=== PATIENT | female | born 1990 | race African-American/Black ===

== ENCOUNTER 2018-04-08 13:07 | Emergency (ER) | payer BC ==
[~2018-04-08] VITALS: Ht 160 cm; Wt 81.6 kg
[2018-04-08 13:20] VITALS: BP 126/66
--- NOTE | 2018-04-08 13:20 | NUR ---
ED Nurse Note: PT WALKED IN TO ER TODAY FROM HOME. AOX4. PT C/O BODYACHES, SORE THROAT, AND PRODUCTIVE COUGH X 2 DAYS AGO. PT DENIES FEVER. LUNG SOUNDS CLEAR IN ALL LOBES. NO SIGNS OF RESPIRATORY DISTRESS OR RETRACTIONS NOTED. ON ASSESSMENT, RR18 @ 98% O2 SAT ON RA.
--- NOTE | 2018-04-08 14:18 | Emergency Room Report ---
History of Present Illness General Chief Complaint: Flu Like Symptoms Source: Patient Present Illness HPI 28-year-old female with no significant past medical history here complaining of 2 days of fever, chills, 10 out of 10 sore throat and cough and congestion in her chest. She reported lots of yellow and green phlegm coming out when she coughs and minimal wheezing. Denies body aches, denies earache, complains of minor rhinorrhea. She has been taking [id number] medication with minimal leave. denies SOB, chest pain, appendicitis, nausea vomiting, abdominal pain. denies recent travel. Allergies: Coded Allergies: No Known Allergies (Unverified , 04/08/18) Patient History Past Medical History: see triage record Past Surgical History: unable to obtain Pertinent Family History: none Last Menstrual Period: IUD Now: No Reviewed Nursing Documentation: PMH: Agreed; PSxH: Agreed Nursing Documentation-PMH Past Medical History: No Stated History Review of Systems All Other Systems: negative except mentioned in HPI Physical Exam Vital Signs Date Time Temp Pulse Resp B/P (MAP) Pulse Ox O2 Delivery O2 Flow Rate FiO2 04/08/18 13:15 99.5 85 20 129/64 97 Room Air Sp02 EP Interpretation: reviewed, normal General Appearance: normal inspection, well appearing, no apparent distress Head: normocephalic, atraumatic Eyes: bilateral eye normal inspection, bilateral eye PERRL ENT: no angioedema, normal voice, TMs + canals normal, uvula midline, nasal congestion, tonsillar swelling, tonsillar exudate Neck: normal inspection, full range of motion, supple Respiratory: normal inspection, lungs clear, no rhonchi, no retraction, no accessory muscle use, no wheezing Cardiovascular #1: normal inspection, regular rate, rhythm, no edema, no murmur Gastrointestinal: normal inspection, normal bowel sounds, non tender, soft Rectal: deferred Genitourinary: deferred Musculoskeletal: normal inspection, back normal Neurologic: normal inspection, alert, oriented x3 Psychiatric: normal inspection, judgement/insight normal, memory normal Skin: normal inspection, normal color, no rash, warm/dry Lymphatic: axilla node tender (R), adenopathy - anterior cervical lymphadenopathy Medical Decision Making PA Attestation All diagnosis and treatment plans were reviewed and discussed with my supervising physician Dr. Carrasco Diagnostic Impression: Primary Impression: Sinusitis ER Course 28-year-old female with no significant past medical history here complaining of 2 days of fever, chills, 10 out of 10 sore throat and cough and congestion in her chest. She reported lots of yellow and green phlegm coming out when she coughs and minimal wheezing. Denies body aches, denies earache, complains of minor rhinorrhea. She has been taking pbfp-ple-fmokged medication with minimal leave. denies SOB, chest pain, appendicitis, nausea vomiting, abdominal pain. denies recent travel. Ddx considered but are not limited to sinusitis, bronchitis, pneumonia, strep pharyngitis, influenza Vital signs: are WNL, pt. is afebrile H&PE are most consistent with sinusitis secondary to strep pharyngitis ORDERS: Ventolin HFA, Phenergan, ibuprofen, Augmentinl ED INTERVENTIONS: None required at this time. DISCHARGE: At this time pt. is stable for d/c to home. Will provide printed patient care instructions, and any necessary prescriptions. Care plan and follow up instructions have been discussed with the patient prior to discharge. Last Vital Signs Date Time Temp Pulse Resp B/P (MAP) Pulse Ox O2 Delivery O2 Flow Rate FiO2 04/08/18 13:15 99.5 85 20 129/64 97 Room Air Disposition: HOME, SELF-CARE Condition: Stable Scripts Ibuprofen* (MOTRIN*) 600 Mg Tablet 600 MG ORAL Q8H PRN for For Pain, #30 TAB 0 Refills Prov: AngélicamogStew ruiz PA 04/08/18 Albuterol Sulfate (VENTOLIN HFA) 18 Gm Hfa.aer.ad 2 PUFFS INH EVERY 6 HOURS, #18 GM 0 Refills Prov: AngélicamogStew ruiz PA 04/08/18 Promethazine Hcl (PROMETHAZINE HCL*) 6.25 Mg/5 Ml Syrup 5 ML ORAL Q6H, #120 ML 0 Refills Prov: Stew Lopez 04/08/18 Amoxicillin/Potassium Clav 875-125* (AUGMENTIN 875-125 TABLET*) 1 Each Tablet 1 TAB ORAL TWICE A DAY for 10 Days, #20 TAB Prov: Stew Lopez 04/08/18 Patient Instructions: Sinusitis, Adult, [id number], Strep Throat, Easy-to- Read Stew Lopez Apr 08, 2018 14:18
[2018-04-08] MEDS ORDERED: IBUPROFEN600 MG ORAL (14:20)
[2018-04-08] MEDS ORDERED: VENTOLIN HFA18 GM INH (14:20)
[2018-04-08] MEDS ORDERED: PROMETHAZI6.25 MG/1 ORAL (14:20)
[2018-04-08] MEDS ORDERED: AUGMENTIN 875-1 EAC1 ORAL (14:20)
[2018-04-08 14:32] VITALS: BP 124/70
--- NOTE | 2018-04-08 14:33 | NUR ---
ED Nurse Note: PT SITTING PEACEFULLY IN BED IN NAD. AOX4. PRESCRIPTIONS AND DISCHARGE PAPERWORK EXPLAINED TO PT. PT VERBALIZES UNADERSTANDING AND ALL QUESTIONS ANSWERED. PRESCRIPTIONS AND DISCHARGE PAPERWORK GIVEN TO PT AND ID WRISTBAND REMOVED. PT WALKED OUT OF ER WITH STEADY GAIT AND ALL BELONGINGS.
== END 2018-04-08 14:32 | disposition home or self-care (01) ==
LOC: EMR 14:00
DX: J32.9 Chronic sinusitis, unspecified (principal)
CPT/HCPCS: 99283

== ENCOUNTER 2018-04-16 13:30 | Emergency (ER) | payer BC ==
[~2018-04-16] VITALS: Ht 160 cm; Wt 81.6 kg
[~2018-04-16 13:30] MED LIST: AUGMENTIN 875-1 EAC1 ORAL; IBUPROFEN600 MG ORAL; PROMETHAZI6.25 MG/1 ORAL; VENTOLIN HFA18 GM INH
[2018-04-16 13:42] VITALS: BP 121/75
--- NOTE | 2018-04-16 14:13 | Emergency Room Report ---
History of Present Illness General Chief Complaint: Flu Like Symptoms Source: Patient Present Illness HPI 28-year-old female patient presents the ER requesting medical clearance to return back to work. Patient states that she was seen here a week ago for sinusitis and treated for symptoms, states symptoms have improved since that time. Reports that she wants to return back to work however she was told by her job that she needs to return to the provider that initially treated her to get clearance to return back to her normal work activities. Denies fever, chest pain, shortness of breath. Reports mild sore throat symptoms during that time. Allergies: Coded Allergies: No Known Allergies (Unverified , 04/16/18) Patient History Past Medical History: see triage record Last Menstrual Period: IUD Now: No : 2 Para: 1 Reviewed Nursing Documentation: PMH: Agreed; PSxH: Agreed Nursing Documentation-PMH Past Medical History: No Stated History Review of Systems All Other Systems: negative except mentioned in HPI Physical Exam Vital Signs Date Time Temp Pulse Resp B/P (MAP) Pulse Ox O2 Delivery O2 Flow Rate FiO2 04/16/18 13:42 98.4 96 16 121/75 98 Room Air Sp02 EP Interpretation: reviewed, normal General Appearance: well appearing, no apparent distress, alert, GCS 15, non- toxic Head: normocephalic, atraumatic Eyes: bilateral eye normal inspection, bilateral eye PERRL ENT: hearing grossly normal, normal pharynx, no angioedema, normal voice, TMs + canals normal, uvula midline, moist mucus membranes, other - no exudates, uvula midline Neck: full range of motion Respiratory: lungs clear, normal breath sounds, no rhonchi, no respiratory distress, no accessory muscle use, no wheezing, speaking full sentences Cardiovascular #1: regular rate, rhythm, no edema Gastrointestinal: non tender, soft, no mass, non-distended, no guarding, no rebound Genitourinary: no CVA tenderness Musculoskeletal: back normal, digits/nails normal, gait/station normal, normal range of motion, non-tender Neurologic: alert, oriented x3, responsive, motor strength/tone normal, sensory intact Psychiatric: mood/affect normal Medical Decision Making PA Attestation Dr. العلي is my supervising Physician whom patient management has been discussed with. Diagnostic Impression: Primary Impression: Encounter for general health examination ER Course Pt presents to ED requesting clearance to return back to work. DDX considered but are not limited to pharyngitis, laryngitis, URI, peritonsillar abscess, tonsillitis. Low suspicion for peritonsillar abscess, no neck stiffness, no hot potato voice , no stridor. Does not require imaging at this time. VITAL SIGNS are WNL, patient is afebrile. ER COURSE: PE benign. Patient reports feeling better, states she is ready to return to work. Salt water gargles for sore throat. ER precautions given. Patient instructed to follow-up with primary for medical clearance to return to normal work activities. Informed patient ER does not normally provide medical clearance . Provided with work note stating patient is allowed to return to normal work activities beginning tomorrow. DISCHARGE: At this time pt is stable for d/c to home. Patient is resting comfortably, in no acute distress, nontoxic appearing, talking without difficulty. Will provide with patient care instructions and any necessary prescriptions. Patient to take medication as instructed. Care plan and follow-up instructions provided. Patient questions asked and answered. Patient instructed to follow-up with primary for medical clearance to return to normal work activities. Informed patient ER does not normally provide medical clearance . ER precautions given. Patient instructed to return to ER immediately for any new or worsening of symptoms including but not limited to intractable vomiting, difficulty breathing, inability to eat. - Please note that this Emergency Department Report was dictated using [employer] operator technology software, occasionally this can lead to erroneous entry secondary to interpretation by the dictation equipment. Last Vital Signs Date Time Temp Pulse Resp B/P (MAP) Pulse Ox O2 Delivery O2 Flow Rate FiO2 04/16/18 13:42 98.4 96 16 121/75 98 Room Air Disposition: HOME, SELF-CARE Condition: Stable Patient Instructions: Sore Throat, [id number] Additional Instructions: Followup with primary care provider in 3 -5 days. Take medications as directed. Patient questions asked and answered. ER precautions given, patient instructed to return to ER immediately for any new or worsening of symptoms. Yan Maciel Apr 16, 2018 14:13
[2018-04-16 14:16] VITALS: BP 128/80
--- NOTE | 2018-04-16 14:16 | NUR ---
ED Nurse Note: Pt was seen due to flu like symptoms. Pt cleared by [facility] provider for discharge. ACI/prescription given and explained to pt and verbalized understanding of teachings provided. All medical devices such as ID band removed. Pt is AAO x4, ambulatory and left with all personal belongings.
== END 2018-04-16 14:30 | disposition home or self-care (01) ==
LOC: EMR 14:20
DX: Z02.9 Encounter for administrative examinations, unspecified (principal)
CPT/HCPCS: 99281